=== PATIENT | male | born 1970 | race Caucasian/White ===

== ENCOUNTER 2017-01-10 16:12 | Outpatient (CLI) ==
[2017-01-10 16:58] LABS: BASOPHILS # (AUTO) 0.1 K/uL (0-0.2); BASOPHILS % (AUTO) 0.7 % (0.0-3.0); EOSINOPHILS # (AUTO) 0.2 K/ul (0.0-0.7); EOSINOPHILS % (AUTO) 2.3 % (0.0-7.0); HEMOGLOBIN 13.7 g/dl (14.0-18.0); IMMATURE GRANULOCYTE % (AUTO) 0.2 % (0.0-5.0); LYMPHOCYTES # (AUTO) 2.9 K/uL (0.60-3.4); LYMPHOCYTES % (AUTO) 34.9 (10.0-50.0); MEAN CORPUSCULAR HGB CONC 33.4 (31.8-35.4); MEAN CORPUSCULAR VOLUME 86.9 fl (80.0-94.0); MONOCYTES # (AUTO) 0.5 K/uL (0.4-2.0); MONOCYTES % (AUTO) 6.3 (0-10); NEUTROPHILS # (AUTO) 4.6 K/ul (2.0-6.9); NEUTROPHILS % (AUTO) 55.6; PLATELET COUNT 216 10^3/uL (140-440); RED BLOOD COUNT 4.72 10^6/ul (4.70-6.10)
[2017-01-10 17:10] LABS: ALBUMIN 4.1 g/dL (3.4-5.0); ALBUMIN/GLOBULIN RATIO 1.17; ANION GAP 9.9; BILIRUBIN,TOTAL 1.1 mg/dL (0.00-1.20); BUN/CREATININE RATIO 16.47; CALCIUM 9.4 mg/dL (8.2-10.2); CHOL/HDL RATIO 5.8 (4.5-6.4); CREATININE 0.85 mg/dL (0.60-1.10); POTASSIUM 3.9 mmol/L (3.5-5.1); TOTAL PROTEIN 7.6 g/dL (6.4-8.2)
[2017-01-10 17:50] LABS: ADD URINE MICROSCOPIC YES; BILIRUBIN,URINE Negative (NEGATIVE); KETONES,URINE Negative (NEGATIVE); LEUKOCYTE ESTERASE ,URINE Negative (NEGATIVE); NITRITE,URINE Negative (NEGATIVE); PH,URINE 5.5 (5-9); PROTEIN,URINE Negative (NEGATIVE); URINE, BLOOD 1+ (NEGATIVE)
== END 2017-01-10 16:13 | disposition home or self-care (01) ==
LOC: LAB 16:12
PROVIDERS: ATTEND General Practice
DX: Z00.00 Encounter for general adult medical examination without abnormal findings (principal)
CPT/HCPCS: 36415; 80053; 80061; 81001; 85025

== ENCOUNTER 2017-01-21 15:15 | Outpatient (CLI) ==
[2017-01-21 16:53] LABS: BILIRUBIN,URINE Negative (NEGATIVE); KETONES,URINE Negative (NEGATIVE); LEUKOCYTE ESTERASE ,URINE Negative (NEGATIVE); NITRITE,URINE Negative (NEGATIVE); PROTEIN,URINE Negative (NEGATIVE); URINE, BLOOD Trace-intact (NEGATIVE)
[2017-01-21 16:56] LABS: ADD URINE MICROSCOPIC YES
== END 2017-01-21 15:16 | disposition home or self-care (01) ==
LOC: RHC 15:15
PROVIDERS: ATTEND General Practice
DX: R31.29 Other microscopic hematuria (principal)
CPT/HCPCS: 81001

== ENCOUNTER 2017-08-08 07:58 | Outpatient (CLI) | END 2017-08-08 07:59 | disposition home or self-care (01) | LOC: LAB 07:58 | PROVIDERS: ATTEND Family Medicine | DX: E29.1 Testicular hypofunction (principal); E55.9 Vitamin D deficiency, unspecified; N52.9 Male erectile dysfunction, unspecified; I10 Essential (primary) hypertension; R39.12 Poor urinary stream; R53.83 Other fatigue; G47.00 Insomnia, unspecified; Z13.220 Encounter for screening for lipoid disorders | CPT/HCPCS: 36415; 80053; 80061; 81001; 82306; 82533; 82607; 82626; 83036; 84153; 84402; 84403; 84439; 84443; 84481; 85027 ==

== ENCOUNTER 2017-08-18 07:49 | Outpatient (CLI) | END 2017-08-18 07:50 | disposition home or self-care (01) | LOC: LAB 07:49 | PROVIDERS: ATTEND Family Medicine | DX: E29.1 Testicular hypofunction (principal); E55.9 Vitamin D deficiency, unspecified | CPT/HCPCS: 36415; 81001; 82670; 83001; 83002; 84146; 84403 ==

== ENCOUNTER 2017-10-24 08:41 | Outpatient (CLI) | END 2017-10-24 08:42 | disposition home or self-care (01) | LOC: LAB 08:41 | PROVIDERS: ATTEND Family Medicine | DX: E29.1 Testicular hypofunction (principal); R53.83 Other fatigue; E55.9 Vitamin D deficiency, unspecified; R74.0 Nonspecific elevation of levels of transaminase and lactic acid dehydrogenase [LDH]; Z79.899 Other long term (current) drug therapy | CPT/HCPCS: 36415; 80053; 82670; 84402; 84403; 85027 ==

== ENCOUNTER 2017-12-19 07:51 | Outpatient (CLI) | END 2017-12-19 07:52 | disposition home or self-care (01) | LOC: LAB 07:51 | PROVIDERS: ATTEND Family Medicine | DX: E55.9 Vitamin D deficiency, unspecified (principal); R53.83 Other fatigue; E29.1 Testicular hypofunction; D72.829 Elevated white blood cell count, unspecified; Z79.899 Other long term (current) drug therapy | CPT/HCPCS: 36415; 80053; 82306; 82670; 84402; 84403; 85027 ==

== ENCOUNTER 2018-05-19 07:53 | Outpatient (CLI) | END 2018-05-19 07:54 | disposition home or self-care (01) | LOC: LAB 07:53 | PROVIDERS: ATTEND Family Medicine | DX: E29.1 Testicular hypofunction (principal); R53.83 Other fatigue; E55.9 Vitamin D deficiency, unspecified; I10 Essential (primary) hypertension; F51.02 Adjustment insomnia; R31.9 Hematuria, unspecified; R25.2 Cramp and spasm; Z79.899 Other long term (current) drug therapy | CPT/HCPCS: 36415; 80053; 80061; 81001; 82306; 82626; 82670; 83036; 83735; 84402; 84403; 85025 ==

== ENCOUNTER 2018-09-14 07:55 | Outpatient (CLI) | END 2018-09-14 07:56 | disposition home or self-care (01) | LOC: LAB 07:55 | PROVIDERS: ATTEND Family Medicine | DX: E29.1 Testicular hypofunction (principal); R31.9 Hematuria, unspecified; Z12.5 Encounter for screening for malignant neoplasm of prostate; R53.83 Other fatigue; E55.9 Vitamin D deficiency, unspecified; Z79.899 Other long term (current) drug therapy; I10 Essential (primary) hypertension | CPT/HCPCS: 36415; 80053; 81001; 82306; 82670; 84402; 84403; 85025 ==

== ENCOUNTER 2018-09-28 15:28 | Outpatient (CLI) | END 2018-09-28 15:29 | disposition home or self-care (01) | LOC: RHC-LAB 15:28 | PROVIDERS: ATTEND General Practice | DX: M62.838 Other muscle spasm (principal) | CPT/HCPCS: 36415; 83735 ==

== ENCOUNTER 2019-03-14 08:08 | Outpatient (CLI) | END 2019-03-14 08:09 | disposition home or self-care (01) | LOC: LAB 08:08 | PROVIDERS: ATTEND Family Medicine | DX: E29.1 Testicular hypofunction (principal); R53.83 Other fatigue; E55.9 Vitamin D deficiency, unspecified; I10 Essential (primary) hypertension; Z79.899 Other long term (current) drug therapy | CPT/HCPCS: 36415; 80053; 82306; 82626; 82670; 84402; 84403; 85027 ==